=== PATIENT | male | born 1960 | race Caucasian/White ===

== ENCOUNTER → 2016-12-08 | Outpatient (CLI) | payer OTHER ==
--- NOTE | 2016-12-08 09:56 | RAD ---
EXAM DESCRIPTION: Left knee series. CLINICAL HISTORY: Left knee pain. COMPARISON: May 12, 2016. TECHNIQUE: Three views of the left knee are submitted for interpretation. FINDINGS: Interval left knee arthroplasty. There is extensive soft tissue swelling about the knee along with a large joint effusion. There is no evidence of osteolysis or hardware failure on today's study. Irregularity noted to the lateral aspect of the patella seen on the sunrise view only. IMPRESSION: Extensive swelling about the left knee which includes soft tissue edema and a large joint effusion. There is irregularity noted to the lateral aspect of the left patella. While this may be due to the interval patellar resurfacing a fracture cannot be excluded. Electronically signed by: Brendan Kothari MD 12/08/2016 09:55
== END | disposition home or self-care (01) ==
LOC: RAD 08:42
PROVIDERS: ATTEND Orthopaedic Surgery
DX: M17.12 Unilateral primary osteoarthritis, left knee (principal)

== ENCOUNTER → 2016-12-22 | Outpatient (CLI) | payer OTHER ==
--- NOTE | 2016-12-23 08:20 | CT ---
Study: CT of the Left Knee. Indication: DISLOCATION OF PATELLOFEMORAL JOINT- LEFT Technique: Axial CT images were acquired through the left knee without intravenous contrast. Coronal and sagittal reformats performed. Comparison: None. Findings: Post surgical changes left total knee arthroplasty and patellar resurfacing noted with extensive streak artifact. This does degrade the examination. The patella demonstrates significant posterior tilt of the medial margin and anterior tilt of the lateral margin. In addition there is medial subluxation of the patella by up to 15 mm. Significant overlying subcutaneous edema and suspected hematoma suspected with skin induration. This is a large knee effusion. Integrity of the Patellofemoral extensor mechanism as well as the retinaculum is difficult to confirm. No periprosthetic fracture or osteolysis identified. Impression: Prominent medial patellar tilt and subluxation. Extensive anterior subcutaneous edema and suspected hematoma. Integrity of the patellofemoral extensor mechanism and retinacula is difficult to confirm. Correlation with dedicated MRI of the left knee with metal artifact reduction techniques recommended. Electronically signed by: Gabriele Mixon MD 12/23/2016 8:20 AM [employer] APPRENTICE
--- NOTE | 2016-12-27 09:58 | CT ---
CT left lower extremity without contrast INDICATION: Left knee arthroplasty complications, dislocation TECHNIQUE: Axial images through the left leg from the hip to the ankle were performed with multiplanar reformats. FINDINGS: Total right leg length is 83.8 cm. Left measures 84.6 cm. There is a total left knee arthroplasty. The left femoral neck is anteverted approximately 10 degrees relative to the posterior margin of the femoral condyle components of the knee arthroplasty. There is a severe posterior medial tilt of the patella on the images through the left knee without gross dislocation. There is prominent joint fluid. Mild osteoarthrosis of the left hip. Mild cam morphology of the left femoral neck. No pronounced osteolysis periprosthetic loosening or periprosthetic fracture. IMPRESSION: Leg lengths as described above Severe medial tilt/angulation of the patella status post total knee arthroplasty without dislocation. No osteolysis gross loosening or periprosthetic fracture left knee Prominent left knee fluid Electronically signed by: Sandip Amaya MD 12/27/2016 9:57 AM [employer]
== END | disposition home or self-care (01) ==
LOC: MRI 11:00
PROVIDERS: ATTEND Orthopaedic Surgery
DX: S83.09 Other subluxation and dislocation of patella (principal)

== ENCOUNTER → 2017-01-25 | Outpatient (CLI) | payer OTHER | END | disposition home or self-care (01) | LOC: GMAB 10:27 | PROVIDERS: ATTEND Family Medicine | DX: M12.88 Other specific arthropathies, not elsewhere classified, other specified site (principal); E11.9 Type 2 diabetes mellitus without complications; Z00.01 Encounter for general adult medical examination with abnormal findings ==

== ENCOUNTER → 2017-01-26 | Outpatient (CLI) | payer OTHER | END | disposition home or self-care (01) | LOC: GMAB 10:23 | PROVIDERS: ATTEND Family Medicine | DX: Z00.01 Encounter for general adult medical examination with abnormal findings (principal) ==

== ENCOUNTER → 2018-12-18 | Outpatient (CLI) | payer OTHER ==
--- NOTE | 2018-12-19 11:31 | MRI ---
EXAM DESCRIPTION: Lumbar Spine w/o Contrast : Magnetic Resonance Imaging. CLINICAL HISTORY: Low back pain with bilateral lower extremity radiculopathy. Posterior legs. Previous removal of spur and discectomy, unknown level. COMPARISON: Lumbar radiographs 10/26/2018. TECHNIQUE: Multiplanar, multiple standard sequences, non contrast MRI, lumbar spine. FINDINGS: Bilaterally shortened pedicles contributing to canal narrowing or stenosis at L2-3, L3-4, L4-5, and L5-S1. L5-S1: Disc desiccation with posterior disc space loss. Posterior Modic type II endplate reactive changes. Midline 6 mm disc protrusion impressing on the thecal sac with AP canal diameter 9 mm. Facets and flavum ligaments unremarkable. Disc bulge into the left foramen with moderate to severe narrowing. Mild to moderate narrowing right foramen. L4-L5: Right partial laminectomy with postsurgical granulation tissue and changes in the posterior right paraspinal soft tissues. Modic type II endplate reactive changes mostly in the mid third and right lateral third of the disc space. More disc space loss associated with the endplate changes. Minimal disc bulge into the left foramen with moderate narrowing. Disc bulge inferior encroaching on the bilateral subarticular recesses. Disc spur complex encroaching on the lateral soft tissues in the right foramen with stenosis. Bilateral facet arthrosis and hypertrophy with the flavum ligaments, more on the right. L3-L4: disc desiccation and disc space loss more to the left of midline. Disc material extruded from the left posterior margin and migrating 2.2 cm above the disc space almost to the level of the L2-3 disc space. Mass effect from the extruded disc on the thecal sac up to 7 mm from the posterior vertebral body edge. Left paracentral severe canal stenosis. Disc bulge and bony margins creating left foraminal stenosis. Moderate narrowing right foramen. Right posterior disc bulge at the disc space narrowing the right subarticular recess. L2-L3: Normal signal in the disc. Disc space maintained with no bulging. Bilateral facet arthrosis and hypertrophy with the flavum ligaments abutting the posterior thecal sac. Bilateral shortened pedicles. AP canal diameter 9 mm. Bilateral mild foraminal narrowing. L1-L2: Normal signal in the disc with disc space maintained and no bulging. Posterior elements unremarkable. Bilaterally shortened pedicles. AP canal diameter 13 mm. Bilateral foramina are patent. T12-L1: Normal signal in the disc with disc space maintained. No bulging. Posterior elements unremarkable. Bilaterally shortened pedicles. Borderline mild canal central narrowing. Conus terminates at this level. Bilateral foramina are patent. L2-3. Trace dextroscoliosis. Paravertebral soft tissues postsurgical changes as previously described.. Otherwise normal marrow signal in the remaining vertebral bodies and the posterior elements. Vertebral bodies are not compressed at any level. IMPRESSION: 1. L3-L4 left posterior paracentral disc herniation and superior extrusion abutting the vertebral body ligaments and compressing the thecal sac with severe left paracentral canal stenosis along the entire disc substance. Impingement of the descending left L3 nerve above the foramen. Disc abutting the descending right L4 nerve in the subarticular recess. 2. Prior right L4 partial laminectomy and L4-L5 discectomy with postsurgical changes. Moderate spondylosis mid third and right lateral third of the disc space. Right lateral disc osteophyte complex encroaching on the soft tissues in the right foramen with stenosis and impingement of the exiting right L4 nerve. 3. Posterior moderate endplate spondylosis at L5-S1 with posterior midline disc protrusion and mild central canal stenosis. Moderate to severe narrowing left foramen by disc bulge. Correlate for left L5 radiculopathy. 4. Multifactorial mild central canal stenosis at L2-3. Bilateral shortened pedicles at multiple levels of the lumbar spine contributing to canal narrowing or stenosis. Electronically signed by: Jaswant Bradford MD 12/19/2018 11:27 AM TOUR COORDINATOR
== END ==
LOC: MRI 10:04
PROVIDERS: ATTEND Family Medicine
DX: M51.16 Intervertebral disc disorders with radiculopathy, lumbar region (principal); M47.897 Other spondylosis, lumbosacral region

== ENCOUNTER → 2019-02-28 | Outpatient (CLI) | payer OTHER | LOC: GMAE 17:21 | PROVIDERS: ATTEND Family Medicine | DX: R20.2 Paresthesia of skin (principal) ==

== ENCOUNTER → 2019-03-07 | Outpatient (CLI) | payer OTHER | LOC: GMAE 11:21 | PROVIDERS: ATTEND Family Medicine | DX: R20.2 Paresthesia of skin (principal); R68.89 Other general symptoms and signs; E53.8 Deficiency of other specified B group vitamins ==

== ENCOUNTER → 2019-08-27 | Outpatient (CLI) | payer OTHER | LOC: GMAE 12:13 | PROVIDERS: ATTEND Family Medicine | DX: E53.8 Deficiency of other specified B group vitamins (principal); E78.2 Mixed hyperlipidemia; I10 Essential (primary) hypertension; E11.9 Type 2 diabetes mellitus without complications; Z12.5 Encounter for screening for malignant neoplasm of prostate | CPT/HCPCS: 82607; 84443; G0103 ==

== ENCOUNTER → 2020-12-01 | Outpatient (CLI) | payer OTHER | LOC: GMAE 10:33 | PROVIDERS: ATTEND Family Medicine | DX: Z12.5 Encounter for screening for malignant neoplasm of prostate (principal); I10 Essential (primary) hypertension; E11.9 Type 2 diabetes mellitus without complications; E78.2 Mixed hyperlipidemia | CPT/HCPCS: 84443; G0103 ==